=== PATIENT | male | born 1970 | race African-American/Black ===

== ENCOUNTER 2020-02-15 17:49 | Emergency (ER) | payer SELFPAY ==
[~2020-02-15] VITALS: Ht 172.7 cm; Wt 111.1 kg
[2020-02-15] MEDS ORDERED: ACETAMINOPHEN 325 MG TAB ONE (18:28)
[2020-02-15] MEDS ORDERED: ZITHROMAX TRI-500 MG PEG (18:39)
--- NOTE | 2020-02-15 18:43 | Emergency Department Note ---
History of Present Illnes History of Present Illness Chief Complaint: COVID PUI History of Present Illness This is a 49 year old male fever and cough. Onset (how long ago): day(s) (2) Location: cough Quality: throat Radiation: Denies non-radiation, Denies back, Denies neck, Denies extremity, Denies abdomen, Denies periumbilical, Denies flank, Denies proximal, Denies distal, Denies other Severity: mild Onset quality: gradual Duration (how long): day(s) (1) Timing of current episode: constant Progression: waxing and waning Chronicity: new Context: Denies recent illness, Denies recent surgery, Denies recent immobilization, Denies recent travel, Denies trauma/injury, Denies new medications, Denies hx of DVT/PE, Denies non-compliance w/ medications, Denies other Relieving factors: none Exacerbating factors: none Associated symptoms: Reports cough, Reports fever/chills; Denies denies other symptoms, Denies confusion, Denies chest pain, Denies diaphoresis, Denies headaches, Denies loss of appetite, Denies malaise, Denies nausea/vomiting, Denies rash, Denies seizure, Denies shortness of breath, Denies syncope, Denies weakness, Denies other Treatments prior to arrival: none Past Medical/Family History Physician Review I have reviewed the patient's past medical and family history. Any updates have been documented here. Past Medical History Past Medical History: None Past Surgical History: None Social History Smoking Cessation: Never Smoker Counseling Performed: No Alcohol Use: None Any Illegal Drug Use: No Other Any Pre-Existing Lines (PICC,: No Review of Systems Review of Systems Constitutional: Reports no symptoms EENTM: Reports no symptoms Cardiovascular: Reports no symptoms Respiratory: Reports as per HPI Gastrointestinal: Reports no symptoms Genitourinary: Reports no symptoms Musculoskeletal: Reports no symptoms Integumentary: Reports no symptoms Neurological: Reports no symptoms Psychological: Reports no symptoms Endocrine: Reports no symptoms Hematological/Lymphatic: Reports no symptoms Physical Exam Related Data Vital signs reviewed: Yes Physical Exam CONSTITUTIONAL Constitutional: Present well-developed, Present well-nourished HENT HENT: Present normocephalic, Present atraumatic, Present oropharynx clear/moist, Present nose normal HENT L/R: Present left ext ear normal, Present right ext ear normal EYES Eyes: Reports PERRL, Reports conjunctivae normal NECK Neck: Present ROM normal PULMONARY Pulmonary: Present effort normal, Present breath sounds normal CARDIOVASCULAR Cardiovascular: Present regular rhythm, Present heart sounds normal, Present c apillary refill normal, Present normal rate GASTROINTESTINAL Abdominal: Present soft, Present nontender, Present bowel sounds normal GENITOURINARY Genitourinary: Present exam deferred SKIN Skin: Present warm, Present dry MUSCULOSKELETAL Musculoskeletal: Present ROM normal NEUROLOGICAL Neurological: Present alert, Present oriented x 3, Present no gross motor or sensory deficits PSYCHOLOGICAL Psychological: Present mood/affect normal, Present judgement normal Assessment & Plan Medical Decision Making MDM bronchitis Reassessment Reassessment time: 18:42 Reassessment better Assessment & Plan Final Impression: (1) Acute bronchitis (2) Fever (3) Exposure to COVID-19 virus Depart Disposition: HOME, SELF-detention Meds Active Scripts Azithromycin (ZITHROMAX TRI-LARON) 500 Mg Tablet, 250 MG PEG DAILY, #6 Prov:PAIGE BETANCOURT MD 02/15/20 Medications in the ED Acetaminophen 975 mg STK-MED ONCE .ROUTE ; Start 02/15/20 at 18:28; Stop 02/15/20 at 18:23; Status DC PAIGE BETANCOURT MD Feb 15, 2020 18:43
[2020-02-15] MEDS ORDERED: ACETAMINOPHEN 325 MG TAB PO ONE (19:00)
== END 2020-02-15 18:57 | disposition home or self-care (01) ==
LOC: FSED 18:45
DX: J20.9 Acute bronchitis, unspecified (principal); R50.9 Fever, unspecified; R05 Cough; Z03.818 Encounter for observation for suspected exposure to other biological agents ruled out
CPT/HCPCS: 99282